=== PATIENT | male | born 1955 | race Caucasian/White ===

== ENCOUNTER 2017-03-21 04:29 | Inpatient (IN) | payer BC, OTHER ==
[~2017-03-21] VITALS: Ht 162.6 cm; Wt 57.1 kg
--- NOTE | ~2017-03-21 | EKG ---
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 : 1955 Requested By: Lorenzo Lim Order Number: [id number] MD: Rayo Burton Measurements Intervals [place] Rate: 105 P: 130 VA: 188 QRS: 53 QRSD: 101 T: 218 QT: 342 QTc: 453 Interpretive Statements Sinus tachycardia Probable anterior infarct, age indeterminate Nonspecific inferolateral ST and T wave abnormality No previous ECG available for comparison Electronically Signed On 03-21-2017 8:45:13 MOHS SURGEON by Rayo Burton [email or web address] <ELECTRONICALLY SIGNED> By: Rayo Burton MD, [facility] 03/21/17 0845 0433 2 Rayo Burton MD, FACC /EPI
--- NOTE | ~2017-03-21 | HC ---
[facility] [place] [address] CONSULTATION Name: MISTY HORNER Room #: 201-P ADM IN M.R.#: [id number] Admission: 03/21/17 Attend Phys: Prabhakar Duffy DO Discharge: Date of : 53 Report #: [id number] THIS REPORT FOR: //name// CC: Prabhakar Torres ATTENDING PHYSICIAN: Alexander Haywood MD REASON FOR CONSULTATION: Kidney transplant. HISTORY OF PRESENT ILLNESS: This 61-year-old gentleman with longstanding diabetes and multiple complications, has had a kidney transplant for the last 8 years. This has done reasonably well. In addition to that, he is status post code blue times 2 with severe cognitive impairment and has been in a nursing facility over the last couple of years because of that. He had a diabetic foot infection, this worsened, he had a transmetatarsal amputation in February and a BK amputation 6 days ago at [facility]. Yesterday, he went from to a assisted and then overnight became short of breath and was taken to this hospital for shortness of breath. PAST MEDICAL HISTORY: He has had the kidney transplant, the diabetes with multiple complications, the code blues with severe cognitive impairment, history of coronary artery disease, congestive heart failure, and decreased left ventricular ejection fraction. MEDICATIONS: At the facility include Myfortic 180 mg a.m. and 360 mg p.m.; multiple vitamins, Mag-Ox 400 b.i.d., lisinopril 2.5 mg daily, linaclotide 72 mcg a day, Xalatan eyedrops, lactulose for constipation daily, Zofran p.r.n., timolol eyedrops, Vemlidy 25 mg daily, Levemir and short-acting insulin, Coreg 3.125 mg daily, vitamin D3 2000 units daily, Plavix 75 mg daily, Colace 100 mg daily, Lexapro 10 mg daily, Flonase, Lasix 20 mg daily, gabapentin 300 mg daily, aspirin 81 mg daily, Prograf 1 mg a.m., Prograf 0.5 mg p.m., and Lipitor 40 mg daily. PAST SURGICAL HISTORY: Also includes glaucoma, blindness; left kidney cryoplasty procedure for some reason, dialysis fistula on the left. FAMILY HISTORY: Positive for heart disease, cancer, diabetes, hypertension, and vascular disease. SOCIAL HISTORY: He has never been a smoker, staying in extended care facility. REVIEW OF SYSTEMS: Cannot be taken due to his current mental status. PHYSICAL EXAMINATION: GENERAL: The patient is arousable, but much in the way of conversation or [address] [place] [address] CONSULTATION Name: SIRILEVYMISTY Carmelita Room #: 201-P [facility] IN M.R.#: [id number] Admission: 03/21/17 Attend Phys: Prabhakar Duffy DO Discharge: Date of : 53 Report #: [id number] answers. SKIN: Unremarkable. SKELETAL: Left BKA. HEENT: Extraocular movements cannot be tested, he is keeping his eyes closed. NECK: Shows no JVD. CHEST: Shows coarse breath sounds. HEART: Regular. ABDOMEN: Soft and nontender. EXTREMITIES: Showed a left BKA wound with dressing. LABORATORY DATA: Hemoglobin 9.9, white count 9.7. Sodium 135, potassium 5.6, chloride 100, bicarbonate 24, creatinine 1.3, BUN 16, glucose 244. ASSESSMENT: 1. Kidney transplant. drug oral immunosuppression, we will reorder. 2. Respiratory distress, aspiration versus heart failure. IV Lasix ordered. May need antibiotics. 3. Severe chronic cognitive impairment due to post-code blue status. 4. Status post left below-knee amputation. 5. Diabetes mellitus with triopathy and blindness. 6. History of hypertension. 7. History of coronary artery disease with heart failure. By: [id number] Martinez Dueñas MD /nt
--- NOTE | ~2017-03-21 | HC ---
[facility] [place] [address] CONSULTATION Name: MISTY HORNER Room #: 201-P ADM IN M.R.#: [id number] Admission: 03/21/17 Attend Phys: Prabhakar Duffy DO Discharge: Date of : 53 Report #: [id number] THIS REPORT FOR: //name// CC: Prabhakar Duffy DO Félix Torres DATE OF SERVICE: 03/21/2017 REQUESTING PHYSICIAN: Prabhakar Duffy DO CHIEF COMPLAINT: Acute hypoxic respiratory failure. HISTORY OF PRESENT ILLNESS: The patient is a 61-year-old male who has had extensive medical history in the past. Unfortunately, the patient just recently had been admitted to [facility] for a left BKA secondary to diabetic wounds and subsequently even prior to the BKA, I believe, he had been found to have extensive CAD, unable to place stents sufficient to revascularize, CABG could not be performed as they felt the patient was too high risk. The patient was secondarily discharged to a [facility] facility for care home, spent approximately 1 day there before becoming short of breath and having chest pain, at which time he was brought in to [facility] and discovered to have what appeared to be acute on chronic congestive heart failure and hypoxic respiratory failure. The patient was also found to have a lactic acid of 5.3. The patient has been altered on his mental status since his discharge. However, he has been less responsive than previous. His was present for my interview today and was answering the majority of my questions. He has had a known history previously of intubation, secondary tracheostomy and PEG tube placement; however, this has been several years prior. The patient himself appears to have a realization that he is in the hospital setting, but he cannot remember which hospital. He waffles back and forth in regards to wishes that he previously had. He also has other family members there including several siblings who are in the nursing field. PAST MEDICAL HISTORY: Significant for CKD with history of end-stage renal disease, has a dialysis catheter, congestive heart failure, likely combined, appears to have had a 30% ejection fraction at ; diabetes type 2, CAD, PVD, TIA, history of code unknown, no arrhythmia at that time, and history of tracheostomy as well as PEG tube placement, known kidney transplant, he had had cryoplasty done of his other kidney, and left leg BKA on 03/15/2017. MEDICATIONS: Lasix, Levemir, NovoLog, Plavix, Coreg, Protonix, lisinopril, Prograf, and Myfortic. FAMILY HISTORY: Coronary artery disease, cancer, diabetes, hypertension, and peripheral vascular disease. [address] [address] CONSULTATION Name: MISTY HORNER Room #: 201-P [facility] IN M.R.#: [id number] Admission: 03/21/17 Attend Phys: Prabhakar Duffy DO Discharge: Date of : 53 Report #: [id number] SOCIAL HISTORY: is his designated power of business attorney, not currently a smoker, alcohol or other drug use, previously was at [facility] for care home. His sisters are in the nursing field. ALLERGIES: No known drug allergies. CODE STATUS: Currently full. REVIEW OF SYSTEMS: Difficult to obtain from the patient. He initially states that he is having pain, then denies and he cannot pinpoint where it was initially. Denies shortness of breath. He denies chest pain currently, but will not open his eyes to me; appears to be responsive, although appears confused. PHYSICAL EXAMINATION: VITAL SIGNS: Include temperature 36.4, pulse 94, respirations 18, blood pressure 144/86, and 100% on nasal cannula. GENERAL: The patient is potentially oriented to self. He is in no acute distress currently. CARDIOVASCULAR: Regular rate and rhythm currently without murmur. No significant edema noted. RESPIRATORY: Lungs appear to be clear to auscultation bilateral upper schaffer. No respiratory distress. He is using nasal cannula. ABDOMEN: Soft, nontender to palpation x 4, positive bowel sounds noted in all 4 quadrants, but diminished. LABORATORY DATA: Include potassium initially 5.6. Lactic acid was initially 5.3, now 1.2. Hemoglobin 9.9, platelets 407. Sodium 135, creatinine 1.3. NT-proBNP 28,406. ASSESSMENT AND PLAN: 1. Acute hypoxic respiratory failure. This is likely secondary to congestive heart failure. I had discussed with the patient's family, the spouse is DPOA, she desires him to be full code. I did try to separate out whether he would want to receive CPR versus ventilation. Again, the patient's spouse reports that he wanted to be full code and we did try to discuss with the patient, but he then went back and forth on what he desired to have and did not really express the capacity to understand the decision making. I did discuss where they wanted to proceed if he were to improve enough to leave the hospital setting, they would want to go back to care home per report. I did discuss quality of life measures with regards to of all this, unfortunately the patient's family is split on this decision, but the durable power of business attorney continues with full code. I spent approximately 35 minutes on advanced care directive discussion with family. 2. Acute on chronic congestive heart failure, combined, again contributing to [facility] [place] [address] CONSULTATION Name: MISTY HORNER Room #: 201-P ADM IN M.R.#: [id number] Admission: 03/21/17 Attend Phys: Prabhakar Duffy DO Discharge: Date of : 53 Report #: [id number] above. The patient has extensive coronary artery disease unlikely to benefit extensively from CABG, likely to cause the end of his life as assessed by [facility]. I had discussed this with family today. 3. Coronary artery disease as above. 4. Left below-knee amputation. Again, this contributes to his overall condition and his propensity for recovery. I discussed this with spouse, although she wants to continue to pursue most aggressive measures possible. 5. Diabetes, management per primary team. 6. I will sign off at this time. Please contact me for any further questions regarding this patient. <ELECTRONICALLY SIGNED> By: Maxi Quarles DO 03/24/17 1422 0838 1021 Maxi Quarles DO /nt
[~2017-03-21 04:29] MED LIST: ASPIR 8181 MG PO; CENTRUM SILVER1 EAC2 PO; COLACE100 MG PO; COMPAZINE25 MG RECTAL; COREG3.125 MG PO; FLONASE 0.05%50 MCG NASAL; LASIX 20 MG TAB20 MG PO; LEVEMIR SUBQ; LEXAPRO 10 MG T10 MG PO; LIPITOR40 MG PO; LISINOPRIL2.5 M1 PO; MAGOX 400400 MG PO; NOVOLOG100 UNIT/1 SUBQ; ONDANSETRON HCL4 M2 PO; PLAVIX 75 MG TA75 M1 PO; PROTONIX40 M1 PO; VIREAD300 MG PO; ZOFRAN ODT4 MG PO
[2017-03-21 04:54] LABS: HEMATOCRIT 30.7 % (42.0-52.0); HEMOGLOBIN 9.9 gm/dL (14.0-18.0); MCH 29.1 pg (26.0-34.0); MCHC 32.1 g/dL (28.0-37.0); MCV 90.5 fL (80.0-100.0); PLATELET COUNT 407 thou/uL (150-400); RBC 3.39 mil/uL (4.50-6.00); RDW 14.9 % (10.5-14.5); WBC 9.7 thou/uL (4.0-11.0)
[2017-03-21 05:01] LABS: CALCIUM 9.2 mg/dL (8.5-10.1); CREATININE 1.3 mg/dL (0.7-1.3); POTASSIUM 5.6 mmol/L (3.5-5.1)
[2017-03-21] MEDS ORDERED: VITAMIN D2000 UNIT PO (05:02)
[2017-03-21] MEDS ORDERED: LEXAPRO 10 MG T10 M2 PO (05:03)
[2017-03-21] MEDS ORDERED: NEURONTIN 300300 M1 PO (05:05)
[2017-03-21] MEDS ORDERED: PROGRAF0.5 MG PO (05:07)
[2017-03-21] MEDS ORDERED: PROGRAF1 MG PO (05:07)
[2017-03-21] MEDS ORDERED: VEMLIDY25 MG PO (05:09)
[2017-03-21 05:10] LABS: TROPONIN-I 0.07 ng/mL (<0.06)
[2017-03-21] MEDS ORDERED: TIMOLOL GL0.5 %/5 M1 (05:13)
[2017-03-21] MEDS ORDERED: ZOFRAN ODT4 MG PO (05:14)
[2017-03-21] MEDS ORDERED: BISACODYL SUPP10 MG (05:14)
[2017-03-21] MEDS ORDERED: PETROLATUM (05:15)
[2017-03-21 05:18] LABS: MANUAL DIFF YES
[2017-03-21] MEDS ORDERED: TRAMADOL 50 MG50 MG PO (05:19)
[2017-03-21] MEDS ORDERED: XALATAN2.5 ML OPHTHALMIC (05:21)
[2017-03-21] MEDS ORDERED: LINZESS72 MCG PO (05:21)
[2017-03-21] MEDS ORDERED: CONSTULOSE10 GM/152 PO (05:21)
[2017-03-21] MEDS ORDERED: MYFORTIC180 MG PO (05:24)
[2017-03-21 05:26] LABS: ABSOLUTE NEUTROPHILS 7.6 thou/uL (1.4-8.2); MYELOCYTES 1 %; TOTAL CELL COUNT 100
[2017-03-21 06:35] VITALS: BP 109/67
[2017-03-21 09:03] VITALS: BP 164/95
[2017-03-21 11:02] VITALS: BP 144/86
[2017-03-21 15:03] VITALS: BP 130/74
[2017-03-21 19:23] VITALS: BP 136/78
[2017-03-22 03:26] LABS: CALCIUM 8.7 mg/dL (8.5-10.1); CREATININE 1.3 mg/dL (0.7-1.3); PHOSPHORUS 3.1 mg/dL (2.5-4.9); POTASSIUM 4.5 mmol/L (3.5-5.1)
[2017-03-22 05:15] VITALS: BP 144/83
[2017-03-22 07:35] VITALS: BP 134/73
[2017-03-22 11:00] VITALS: BP 151/91
[2017-03-22 15:04] VITALS: BP 123/66
[2017-03-22 19:22] VITALS: BP 114/65
[2017-03-23 00:05] VITALS: BP 119/71
[2017-03-23 03:41] LABS: BASOPHILS 0.2 % (0.0-2.0); EOSINOPHILS 0.1 % (0.0-3.0); HEMATOCRIT 25.4 % (42.0-52.0); HEMOGLOBIN 8.5 gm/dL (14.0-18.0); LYMPHOCYTES 15.2 % (24.0-44.0); MCH 29.9 pg (26.0-34.0); MCHC 33.4 g/dL (28.0-37.0); MCV 89.4 fL (80.0-100.0); MONOCYTES 10.9 % (1.0-8.0); POLYS 73.6 % (36.0-66.0); RBC 2.84 mil/uL (4.50-6.00); RDW 14.8 % (10.5-14.5); WBC 10.8 thou/uL (4.0-11.0)
[2017-03-23 03:44] LABS: PLATELET COUNT 303 thou/uL (150-400)
[2017-03-23 03:45] LABS: MANUAL DIFF NO
[2017-03-23 03:49] VITALS: BP 140/74
[2017-03-23 03:54] LABS: ALBUMIN 1.8 g/dL (3.4-5.0); CALCIUM 8.6 mg/dL (8.5-10.1); CREATININE 1.3 mg/dL (0.7-1.3); PHOSPHORUS 2.3 mg/dL (2.5-4.9); POTASSIUM 3.9 mmol/L (3.5-5.1)
[2017-03-23 07:05] VITALS: BP 126/68
[2017-03-23 11:25] VITALS: BP 133/72
[2017-03-23 15:15] VITALS: BP 124/82
[2017-03-23 19:33] VITALS: BP 136/69
[2017-03-24 02:56] VITALS: BP 143/75
[2017-03-24 04:09] LABS: ALBUMIN 2.3 g/dL (3.4-5.0); CALCIUM 9.6 mg/dL (8.5-10.1); CREATININE 1.3 mg/dL (0.7-1.3); PHOSPHORUS 2.2 mg/dL (2.5-4.9); POTASSIUM 3.9 mmol/L (3.5-5.1)
[2017-03-24 07:08] VITALS: BP 149/75
[2017-03-24] MEDS ORDERED: DUONEB 2.5-0.5 M3 ML INH (08:01)
[2017-03-24] MEDS ORDERED: ALBUTEROL2.5 MG/0.5 INH (08:01)
[2017-03-24 11:03] VITALS: BP 116/62
[2017-03-24] MEDS ORDERED: DEMADEX20 MG PO (11:35)
== END 2017-03-24 15:21 | disposition short-term general hospital (02) | DRG 291 ==
LOC: ER 04:29 → EROBS 05:55 → 2N 05:55
PROVIDERS: Emergency Medicine; Family Medicine; Internal Medicine Nephrology
DX: I13.2 Hypertensive heart and chronic kidney disease with heart failure and with stage 5 chronic kidney disease, or end stage renal disease (principal); N18.6 End stage renal disease; J96.01 Acute respiratory failure with hypoxia; I50.43 Acute on chronic combined systolic (congestive) and diastolic (congestive) heart failure; Z94.0 Kidney transplant status; N17.9 Acute kidney failure, unspecified; I25.10 Atherosclerotic heart disease of native coronary artery without angina pectoris; H54.7 Unspecified visual loss; E11.319 Type 2 diabetes mellitus with unspecified diabetic retinopathy without macular edema; E11.40 Type 2 diabetes mellitus with diabetic neuropathy, unspecified; G31.84 Mild cognitive impairment of uncertain or unknown etiology; E11.22 Type 2 diabetes mellitus with diabetic chronic kidney disease; E11.51 Type 2 diabetes mellitus with diabetic peripheral angiopathy without gangrene; E87.5 Hyperkalemia; D64.9 Anemia, unspecified; E11.65 Type 2 diabetes mellitus with hyperglycemia; Z66 Do not resuscitate; Z86.73 Personal history of transient ischemic attack (TIA), and cerebral infarction without residual deficits; Z93.0 Tracheostomy status; Z93.1 Gastrostomy status; Z99.2 Dependence on renal dialysis; Z89.512 Acquired absence of left leg below knee; Z79.82 Long term (current) use of aspirin; Z79.899 Other long term (current) drug therapy; Z83.3 Family history of diabetes mellitus; Z80.9 Family history of malignant neoplasm, unspecified; Z82.49 Family history of ischemic heart disease and other diseases of the circulatory system
CPT/HCPCS: 10081

== ENCOUNTER 2017-04-13 02:58 | Inpatient (IN) | payer BC, OTHER ==
[2017-04-13] VITALS (17 sets, daily range): BP systolic 81–136; BP diastolic 36–72
[~2017-04-13] VITALS: Ht 160 cm; Wt 66.3 kg
--- NOTE | ~2017-04-13 | HC ---
[facility] [place] [address] CONSULTATION Name: MISTY HORNER Room #: 243-P [facility] IN M.R.#: [id number] Admission: 04/13/17 Attend Phys: Alexander Haywood MD Discharge: 04/19/17 Date of : 53 Report #: [id number] THIS REPORT FOR: //name// CC: Alexander Torres REASON FOR CONSULTATION: Renal transplant. REASON FOR PRESENTATION: Post-cardiac arrest. HISTORY OF PRESENT ILLNESS: A 62-year-old with numerous problems including, not limited to repeated episodes of cardiac arrest and renal transplantation. I am not able to obtain any history from the patient; however, his is at bedside. The patient had a witnessed arrest in his facility. Intubated and resuscitated on . He was brought for further evaluation and management. He has numerous medical problems in the past including and not limited to hemodialysis, status post renal transplantation. He is also diabetic with a new left BKA. Code ice was initiated and the patient was admitted for further evaluation and management. I am being consulted to manage his renal transplant related issues. PAST MEDICAL HISTORY: 1. Status post out of hospital cardiac arrest. 2. ESRD in the past, status post new kidney transplantation. 3. Seizures. 4. Hypertension. 5. Diabetes mellitus. 6. Legally blind. 7. Peripheral vascular disease. 8. Status post left BKA. PAST SURGICAL HISTORY: 1. Renal transplantation. 2. Left BKA. 3. Left AV fistula. FAMILY HISTORY: Significant for diabetes mellitus, hypertension, and cancer. REVIEW OF SYSTEMS: Unobtainable. MEDICATIONS: The patient's outpatient medications include the followin. Plavix. 2. Carvedilol. 3. Torsemide. 4. Tacrolimus. 5. Mycophenolate. [facility] [address] [place] [address] CONSULTATION Name: SIRIMISTY Room #: 243-P DIS IN [facility]#: [id number] Admission: 04/13/17 Attend Phys: Alexander Haywood MD Discharge: 04/19/17 Date of : 53 Report #: [id number] PHYSICAL EXAMINATION: GENERAL: The patient is intubated. VITAL SIGNS: Blood pressure is 135/63. HEAD AND NECK: No jugular venous distention. ET tube is present. CHEST: No crackles. CARDIOVASCULAR: No rub. ABDOMEN: Soft, nontender. LOWER EXTREMITIES: Status post left BKA. LABORATORY VALUES: Reviewed. Creatinine is actually down to 1.3. White blood cell count 11.6. Chest x-ray reviewed, right mid lung infiltrate is present. Possible aspiration. ASSESSMENT, IMPRESSION AND PLAN: 1. Status post renal transplantation. 2. Status post out of hospital cardiac arrest. 3. Diabetes mellitus. 4. Hypertension. 5. Legal blindness. 6. Remote history of brain injury. 7. Code ice status. 8. From the renal perspective, the patient's kidney function is stable. I will wait for the rewarming process to start before making any further decision. I discussed with his his issues and recurrent cardiac arrest. He is not a candidate for any aggressive or heroic measures. If the family decides or opts to continue with the invasive measures, we will resume the patient's immune suppressive medications including tacrolimus and mycophenolate. 9. ID is following and adjusting his antibiotics accordingly. 10. Septic workup is ongoing. 11. Repeated episodes of cardiac arrest with no good outcome, should address code status with the family and this has been done by the primary team. I do believe that this patient would benefit from hospice, palliative care. <ELECTRONICALLY SIGNED> By: Perla Souza MD 04/19/17 0939 0940 Perla Souza MD /nt
--- NOTE | ~2017-04-13 | EKG ---
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
--- NOTE | ~2017-04-13 | HC ---
[facility] [place] [address] CONSULTATION Name: MISTY HORNER Room #: 243-P [facility] IN M.R.#: [id number] Admission: 04/13/17 Attend Phys: Alexander Haywood MD Discharge: 04/19/17 Date of : 53 Report #: [id number] THIS REPORT FOR: //name// CC: Roly Torres DATE OF SERVICE: 04/13/2017 HISTORY OF PRESENT ILLNESS: This is a 62-year-old male patient who was evaluated by me for altered mental status. This patient provides no history. The history is taken after talking to the nurses looking after this patient. No family member is available. This patient apparently had some insult to the brain in the past and has a compromised brain and he also had multiple other things like amputation. He apparently became apneic and had an asystole. CPR was done and the patient was intubated. When seen, the patient was intubated and was on cooling protocol. Nurses have noticed some activity initially, but after starting the patient on propofol, as I understand, they have not noticed any activity. It is not clear if the activity was shivering or something else. REVIEW OF SYSTEMS: Available only from the records. That indicates that this patient has pretty significant problems in the baseline and on top of that, he had hypoxia and appeared to have a prolonged resuscitation. I reviewed the records and that is where I got the history and it looks like the patient has severe cognitive impairment even before this all happened and has a pretty poor quality of the life. Records also indicate that he may have gone into atrial fibrillation even when he was here. It looks like this patient has a history of seizure, vomiting and congestive heart failure. He does have a prior history of transplant. I tried to get the 14-point review of system, but that is all I can get, which looks relevant. PAST MEDICAL HISTORY: Positive for what looks like pretty significant cognitive impairment in the baseline. FAMILY HISTORY: Unavailable. SOCIAL HISTORY: [facility] and apparently, he is also blind. PHYSICAL EXAMINATION: Pretty limited. He has no response of any kind to anything. He has no reflexes. I can tell about the eye examination because he apparently has blindness in the baseline. He is intubated. He is on cooling protocol. He is on a vent. He looks reasonably well developed. He has amputations in the past. His blood pressure is 111/54, his pulse is 64 and his respiratory rate is 17. LABORATORY DATA: His labs indicate a white count of 11.6 and hemoglobin of 9.8. He has not had any imaging study of the brain. [address] [address] CONSULTATION Name: SIRIMISTY Room #: 243-P [facility] IN M.R.#: [id number] Admission: 04/13/17 Attend Phys: Alexander Haywood MD Discharge: 04/19/17 Date of : 53 Report #: [id number] IMPRESSION: Hypoxic encephalopathy in a patient who has pretty significant compromise of the brain in the baseline. RECOMMENDATIONS: I think we will try to prognosticate this patient once he is off the cooling protocol. At that time, we will get an EEG done. If he is considered stable, then we will try to get a CT scan of the head done. I do not think we need any anticonvulsants at the moment because this patient is on propofol. However, we will readdress that question once the patient's EEG is obtained. Dr. Gonzalez will follow up this patient from tomorrow and look at these testings and leave further recommendations as indicated. Thank you very much for this referral. <ELECTRONICALLY SIGNED> By: rFench Sanders MD 04/21/172000 1818 2204 French Sanders MD /nt
--- NOTE | ~2017-04-13 | 2DMMODE ---
[facility] [address] [place] [address] 2 D/M-MODE ECHOCARDIOGRAM Name: SIRIMISTY Carmelita Room #: 170-6 ADM IN .R.#: [id number] Admission: 04/13/17 Attend Phys: Roly Palmer MD Discharge: Date of : 53 Date of Service: 04/13/17 0955 Report #: [id number] THIS REPORT FOR: //name// APPROVED REPORT Study performed: 04/13/2017 08:24:02 EXAM: Comprehensive 2D, Doppler, and color-flow Echocardiogram Patient Location: ER Room #: 6 Status: routine BSA: 1.64 HR: 62 bpm BP: 115/61 mmHg Other Information Study Quality: Adequate Indications Cardiac arrest 2D Dimensions RVDd: 28.70 mm LVEF(%): 41.20 (>50%) IVSd: 9.44 (7-11mm) LVOT Diam: 20.77 (18-24mm) LVDd: 47.66 mm PWd: 9.05 (7-11mm) Ascending Ao: 26.88 (22-36mm) LVDs: 38.06 (25-40mm) Aortic Root: 28.30 mm IVC: 22.00 mm Miranda's LVEF: 41.20 % Volumes Left Atrial Volume (Systole) Single Plane 4CH: 63.69 mL Single Plane 2CH: 81.56 mL LA ESV Index: 53.00 mL/m2 Aortic Valve AoV Peak Shin.: 1.31 m/s AO Peak Gr.: 6.82 mmHg LVOT Max P.26 mmHg LVOT Max V: 0.75 m/s MILAGROS Vmax: 1.95 cm2 Mitral Valve E/A Ratio: 1.3 MV Decel. Time: 186.77 ms MV E Max Shin.: 1.37 m/s [facility] [place] [address] 2 D/M-MODE ECHOCARDIOGRAM Name: HONRERMISTY Room #: 170-6 [facility] IN ..#: [id number] Admission: 04/13/17 Attend Phys: Roly Palmer MD Discharge: Date of : 53 Date of Service: 04/13/17 0955 Report #: [id number] A Shin.: 1.08 m/s MV PHT: 54.16 ms IVRT: 119.95 ms Pulmonary Valve PV Peak Shin.: 0.90 m/s PV Peak Gr.: 3.21 mmHg Tricuspid Valve TR Peak Shin.: 3.52 m/s TR Peak Gr.: 49.59 mmHg PA Pressure: 60.00 mmHg Left Ventricle The left ventricle is normal size. There is normal left ventricular wall thickness. Left ventricular ejection fraction is moderately decreased. LVEF is 35-40%. Hypokinesis of distal anterior wall, distal septum and apex The diastolic function is abnormal. Right Ventricle The right ventricle is normal size. The right ventricular systolic function is normal. Atria Left atrium is dilated. The right atrium size is normal. Aortic Valve Aortic valve is mildly calcified. Mild aortic regurgitation. There is no aortic valvular stenosis. Mitral Valve The mitral valve is normal in structure. Moderate mitral regurgitation. No evidence of mitral valve stenosis. Tricuspid Valve The tricuspid valve is normal in structure. There is mild tricuspid regurgitation. Estimated PAP 60 mmHg. There is moderate pulmonary hypertension. Pulmonic Valve The pulmonary valve is normal in structure. There is no pulmonic valvular regurgitation. Great Vessels The aortic root is normal in size. IVC is dilated and collapses >50% with inspiration. [facility] [address] [place] [address] 2 D/M-MODE ECHOCARDIOGRAM Name: MISTY HORNER Carmelita Room #: 170-6 ADM IN .R.#: [id number] Admission: 04/13/17 Attend Phys: Roly Palmer MD Discharge: Date of : 53 Date of Service: 04/13/17 0955 Report #: [id number] Pericardium Small circumferential pericardial effusion. <Conclusion> Left ventricular ejection fraction is moderately decreased. LVEF is 35-40%. Hypokinesis of distal anterior wall, distal septum and apex Aortic valve is mildly calcified. Mild aortic regurgitation, no stenosis. The mitral valve is normal in structure. Moderate mitral regurgitation. Pulmonary artery pressure of 60mmHg Small circumferential pericardial effusion. <ELECTRONICALLY SIGNED> By: Rayo Burton MD, [facility] 04/13/17954 4 4 Rayo Burton MD, FAC /INF
--- NOTE | ~2017-04-13 | HC ---
[facility] [place] [address] CONSULTATION Name: MISTY HORNER Room #: 243-P ADM IN M.R.#: [id number] Admission: 04/13/17 Attend Phys: Alexander Haywood MD Discharge: Date of : 53 Report #: [id number] THIS REPORT FOR: //name// CC: Roly Torres TYPE OF REPORT: Infectious diseases consultation. REASON FOR CONSULTATION: I was asked to evaluate concerning respiratory failure, pneumonia and aspiration. 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 No specific organism was identified at that time and he was discharged on 01/22/2017. No antibiotics were given at the time of discharge. He has remained on mycophenolate and tacrolimus for his immunosuppression. He was also discharged on tenofovir. He resides in a [facility]. Has been able to mobilize reasonably. He does have significant cognitive impairment from his anoxic encephalopathy and is blind. Today, noticed increased cough associated with nausea and vomiting. It appeared that he aspirated. Required a respiratory resuscitation. He then coded, was given epinephrine, bicarbonate and calcium and then went into atrial fibrillation with rapid ventricular response. Blood pressure was then maintained and he was transferred to Emergency Room for further care. He was placed on cold ice protocol and remains on ventilator at 40%. Moderate amount of tracheal secretions are aspirated. NG tube in place. Had one stool since being admitted, has indwelling Mtz catheter. Received IV fluids and is now on vasopressors. He also developed a seizure and is on Keppra. PAST MEDICAL HISTORY: Significant for diabetes, congestive heart failure, end-stage renal disease and now renal transplant past 9 years on 2 drug immunosuppression, peripheral vascular disease status post left BKA 1 month ago, congestive heart failure, hypertension, glaucoma, TIA, previous cardiorespiratory codes and anoxic encephalopathy. ALLERGIES: None. MEDICATIONS: As noted on his MAR, which were reviewed. He was given vancomycin, Levaquin and Zosyn in the Emergency Room. FAMILY HISTORY: Heart disease, cancer, diabetes, hypertension and vascular disease. SOCIAL HISTORY: Nonsmoker. No significant alcohol intake. REVIEW OF SYSTEMS: The patient was unable to give details of review of systems. [address] [address] CONSULTATION Name: MISTY HORNER [place] Room #: 243-P [facility] IN M.R.#: [id number] Admission: 04/13/17 Attend Phys: Alexander Haywood MD Discharge: Date of : 53 Report #: [id number] He does have an indwelling Mtz catheter, right femoral IV line and is orally intubated. PHYSICAL EXAMINATION: VITAL SIGNS: Temperature is 95.8, pulse 79, respirations 30 and blood pressure 127/64 on low dose of Levophed. GENERAL: The patient was obtunded, did not respond to verbal stimuli. HEENT: Pupils reactive. Orally intubated. NECK: Supple. LUNGS: Coarse bilaterally. HEART: Regular, without murmur. ABDOMEN: Soft and nontender. No hepatosplenomegaly or mass. GENITALIA: External genitalia unremarkable. EXTREMITIES: Unremarkable with left BKA incision well intact with laurita in place. Right femoral IV unremarkable. LABORATORY STUDIES: Sodium 137, potassium 4.3, bicarbonate of 24 and creatinine 1.4. Alkaline phosphatase normal, bilirubin normal and ALT normal. Blood glucose 314. Lipase normal. Lactate 5. Troponin 0.2. BNP 11,689. Hemoglobin 9.1; platelet count 229,000; WBC 8.9; 89% segs and 4% lymphs. Urinalysis unremarkable. Blood, urine and sputum cultures are pending. RADIOLOGICAL DATA: Chest x-ray: Cardiomegaly; right mid lung infiltrate; left lower lobe infiltrate and left rib fracture, old. IMPRESSION: A 62-year old with renal transplant, two-drug immunosuppression, healthcare-associated aspiration pneumonia with respiratory failure, shock in the setting of diabetes, peripheral vascular disease and anoxic encephalopathy. RECOMMENDATIONS: Recommend further evaluation for influenza as possible etiology for his initial event, screen for nosocomial organisms and continue broad-antibiotic coverage. We will give full support and anticipate transfer to the intensive care unit. <ELECTRONICALLY SIGNED> By: Sanchez Loving MD 04/14/17 0906 [id number] Sanchez Loving MD /nt
--- NOTE | ~2017-04-13 | HC ---
[facility] [place] [address] CONSULTATION Name: MISTY HORNER Room #: 243-P [facility] IN M.R.#: [id number] Admission: 04/13/17 Attend Phys: Alexander Haywood MD Discharge: 04/19/17 Date of : 53 Report #: [id number] THIS REPORT FOR: //name// CC: Alexander Torres REQUESTING PHYSICIAN: Dr. Haywood. CHIEF COMPLAINT: Hypoxic respiratory failure and cardiac arrest. HISTORY OF PRESENT ILLNESS: The patient is a 62-year-old male who I had seen previously on 03/21/2017 for consultation. He had presented on 04/13/2017 after an episode at [facility] in which patient had a witnessed cardiac arrest. He apparently had some coughing and then an episode of aspiration followed by arrest, 10 minutes of CPR and then was transported by EMS at which time in the Emergency Department had additional 10-15 minutes, was found to be asystole initially, had recovery of spontaneous circulation and then was in AFib with RVR. During the process, the patient was intubated and has been subsequently sustained on mechanical ventilator. Unfortunately, the patient has had little recovery in his overall mental status since this episode. He has a significant past medical history significant for congestive heart failure appears to be combined with an ejection fraction 30% last at [facility]. EF was found to be 35% here at the facility. He also has type 2 diabetes and history of diabetic ulcers, which he has some now. Additionally, he has had a left BKA on 03/15/2017 and had a cryoplasty done of one of his kidneys. Additionally, he has had a kidney transplant and has been off dialysis since having this transplant. He has a left AV fistula. Additionally, he has peripheral vascular disease, suspected dementia, CAD, TIA, history of tracheostomy as well PEG tube placement. MEDICATIONS: Prior to arrival Lasix, Levemir, NovoLog, Plavix, Coreg, Protonix, lisinopril, Prograf and Myfortic. FAMILY HISTORY: Coronary artery disease, cancer, diabetes, hypertension and peripheral vascular disease. SOCIAL HISTORY: His is designated power of attorney general who was present during my interview today. Also has two siblings who were present at the time of my interview. ALLERGIES: No known drug allergies. CODE STATUS: Currently, he is listed as a medical code only. REVIEW OF SYSTEMS: Unable to obtain at this time due to [place] [address] CONSULTATION Name: MISTY HORNER Room #: 243-P [facility]#: [id number] Admission: 04/13/17 Attend Phys: Alexander Haywood MD Discharge: 04/19/17 Date of : 53 Report #: [id number] PHYSICAL EXAMINATION: VITAL SIGNS: Include a temperature of 37.1, pulse 92, respirations 13, blood pressure 127/66, and 100% on a ventilator. GENERAL: Not alert, unable to arouse through any stimuli. CARDIOVASCULAR: Regular rate and rhythm, currently in no acute distress. RESPIRATORY: Diffuse ventilatory sounds with mechanical ventilation. ABDOMEN: Soft and nontender to palpation. LABORATORY DATA: These include white blood cell 17.3, hemoglobin 9.3, hematocrit 29.2, and platelets 172. Creatinine is 1.5. AST 73 and ALT 17. ASSESSMENT AND PLAN: 1. Acute hypoxic respiratory failure. The patient is currently ventilated. I had an extensive discussion with family lasting approximately 35 minutes. Family desires to have palliative extubation. In addition, I discussed what this would entail including the process of switching him to CPAP initially, titrating medications for comfort and then finally extubation. I did also make them aware of secretions that would likely be present and that we would manage any discomfort or anxiety that he experienced. They are amenable to this at this time. We will make no code concerning his code status at this time. 2. Status post cardiac arrest. Again, at this time pursuing therapeutic extubation. 3. Combined congestive heart failure. I did discuss this in context of his overall quality of life, extubation as above. 4. Likely anoxic brain injury again overall affecting prognosis, considering this and his previous diagnoses quality of life indicators are much reduced, but we will pursue therapeutic extubation. I will place orders and I have discussed with family. I will try to be present for this if at all possible at the beginning of this extubation. They have contacted their own professor of biostatistics and are contacting family members at this time. Thank you very much for the consultation. <ELECTRONICALLY SIGNED> By: Maxi Quarles DO 04/26/17 [id number] Maxi Quarles DO /nt
[~2017-04-13 02:58] MED LIST changes: +ALBUTEROL2.5 MG/0.5 INH; +BISACODYL SUPP10 MG; +CONSTULOSE10 GM/152 PO; +DEMADEX20 MG PO; +DUONEB 2.5-0.5 M3 ML INH; +LEXAPRO 10 MG T10 M2 PO; +LINZESS72 MCG PO; +MYFORTIC180 MG PO; +NEURONTIN 300300 M1 PO; +PETROLATUM; +PROGRAF0.5 MG PO; +PROGRAF1 MG PO; +TIMOLOL GL0.5 %/5 M1; +TRAMADOL 50 MG50 MG PO; +VEMLIDY25 MG PO; +VITAMIN D2000 UNIT PO; +XALATAN2.5 ML OPHTHALMIC
[2017-04-13 03:50] LABS: BE(vivo) -9.1 mmol/L (-2 to +3); HCO3 17.2 mmol/L (22.0-26.0); PCO2 38.6 mmHg (35.0-45.0); PO2 255.5 mmHg (80.0-100.0); sO2 99.5 % (92.0-98.0)
[2017-04-13 03:51] LABS: pH 7.267 (7.360-7.450)
[2017-04-13 06:20] LABS: CALCIUM 8.7 mg/dL (8.5-10.1); CREATININE 1.4 mg/dL (0.7-1.3); POTASSIUM 4.3 mmol/L (3.5-5.1)
[2017-04-13 06:22] LABS: APTT 28.7 Seconds (24.5-32.8); BASOPHILS 0.4 % (0.0-2.0); HEMATOCRIT 27.5 % (42.0-52.0); HEMOGLOBIN 9.1 gm/dL (14.0-18.0); INR 1.2; LYMPHOCYTES 4.5 % (24.0-44.0); MCH 30.3 pg (26.0-34.0); MCHC 32.9 g/dL (28.0-37.0); MCV 91.9 fL (80.0-100.0); MONOCYTES 5.2 % (1.0-8.0); PLATELET COUNT 229 thou/uL (150-400); POLYS 89.9 % (36.0-66.0); PROTIME 12.5 Seconds (9.3-11.4); RDW 18.3 % (10.5-14.5); WBC 8.9 thou/uL (4.0-11.0)
[2017-04-13 06:27] LABS: FIBRINOGEN 184.3 mg/dL (210-360)
[2017-04-13 06:29] LABS: MAGNESIUM 1.8 mg/dL (1.8-2.4); TOTAL BILIRUBIN 0.4 mg/dL (<0.1-1.0); TOTAL PROTEIN 5.4 g/dL (6.4-8.2); TROPONIN-I 0.22 ng/mL (<0.06)
[2017-04-13 06:34] LABS: D-DIMER 35.2 ug/mLFEU (0.19-0.50)
[2017-04-13 07:05] LABS: BE(vivo) -3.1 mmol/L (-2 to +3); HCO3 21.2 mmol/L (22.0-26.0); PCO2 34.9 mmHg (35.0-45.0); pH 7.402 (7.360-7.450); sO2 97.5 % (92.0-98.0)
[2017-04-13 07:29] LABS: URINE BILIRUBIN NEGATIVE (Negative); URINE BLOOD NEGATIVE (Negative); URINE CLARITY CLEAR; URINE COLOR YELLOW; URINE GLUCOSE-RANDOM* NEGATIVE (Negative); URINE KETONES NEGATIVE (Negative); URINE LEUKOCYTES-REFLEX NEGATIVE (Negative); URINE NITRITE-REFLEX NEGATIVE (Negative); URINE PROTEIN (DIPSTICK) 2+ (Negative); URINE UROBILINOGEN 0.2 E.U./dl (0.2-1.0)
[2017-04-13 07:43] LABS: AMP/METHAMP Negative (Negative); BARBITURATES Negative (Negative); BENZODIAZEPINES Negative (Negative); COCAINE Negative (Negative); METHADONE Negative (Negative); OPIATES Negative (Negative); PCP Negative (Negative)
[2017-04-13 07:56] LABS: FINE GRANULAR CASTS 0-3 Few /LPF (None Seen); HYALINE CASTS 0-3 Few /LPF (None Seen)
[2017-04-13 08:01] LABS: BACTERIA-REFLEX 1-9 Few /HPF (None Seen); CRYSTALS None Seen /LPF (None Seen); SQUAMOUS None Seen /LPF (0-3); URINE RBC 0-2 Rare /HPF (0-2); URINE WBC-REFLEX 0-5 Rare /HPF (0-5)
[2017-04-13 12:31] LABS: CALCIUM 8.2 mg/dL (8.5-10.1); CREATININE 1.3 mg/dL (0.7-1.3); POTASSIUM 3.7 mmol/L (3.5-5.1)
[2017-04-13 12:33] LABS: TROPONIN-I 0.75 ng/mL (<0.06)
[2017-04-13 16:40] LABS: HEMATOCRIT 29.9 % (42.0-52.0); HEMOGLOBIN 9.8 gm/dL (14.0-18.0); MCHC 32.9 g/dL (28.0-37.0); MCV 91.1 fL (80.0-100.0); PLATELET COUNT 233 thou/uL (150-400); RBC 3.28 mil/uL (4.50-6.00); RDW 18.4 % (10.5-14.5); WBC 11.6 thou/uL (4.0-11.0)
[2017-04-13 16:47] LABS: CREATININE 1.1 mg/dL (0.7-1.3); POTASSIUM 3.6 mmol/L (3.5-5.1)
[2017-04-13 16:53] LABS: ALBUMIN 1.9 g/dL (3.4-5.0); MAGNESIUM 1.6 mg/dL (1.8-2.4); TOTAL BILIRUBIN 0.3 mg/dL (<0.1-1.0); TOTAL PROTEIN 5.5 g/dL (6.4-8.2)
[2017-04-13 16:56] LABS: APTT 31.2 Seconds (24.5-32.8); INR 1.2; PROTIME 12.3 Seconds (9.3-11.4)
[2017-04-13 17:56] LABS: ABSOLUTE NEUTROPHILS 10.3 thou/uL (1.4-8.2)
[2017-04-13 17:57] LABS: ANISOCYTOSIS 2+
[2017-04-13 17:58] LABS: POLYCHROMASIA SLIGHT
[2017-04-13 17:59] LABS: HYPOCHROMASIA 2+; TARGET CELLS OCCASIONAL
[2017-04-13 21:15] LABS: CALCIUM 8.3 mg/dL (8.5-10.1); CREATININE 1.2 mg/dL (0.7-1.3); POTASSIUM 3.8 mmol/L (3.5-5.1)
[2017-04-13 21:17] LABS: TROPONIN-I 0.82 ng/mL (<0.06)
[2017-04-14] VITALS (70 sets, daily range): BP systolic 70–120; BP diastolic 43–60
[2017-04-14 00:42] LABS: CALCIUM 7.8 mg/dL (8.5-10.1); CREATININE 1.1 mg/dL (0.7-1.3); POTASSIUM 3.7 mmol/L (3.5-5.1)
[2017-04-14 00:47] LABS: TROPONIN-I 0.75 ng/mL (<0.06)
[2017-04-14 08:35] LABS: CALCIUM 7.8 mg/dL (8.5-10.1); CREATININE 1.3 mg/dL (0.7-1.3); POTASSIUM 3.5 mmol/L (3.5-5.1); TROPONIN-I 0.58 ng/mL (<0.06)
[2017-04-15] VITALS (61 sets, daily range): BP systolic 86–136; BP diastolic 49–75
[2017-04-15 04:01] LABS: HEMOGLOBIN 8.8 gm/dL (14.0-18.0); MCH 29.7 pg (26.0-34.0); MCHC 32.7 g/dL (28.0-37.0); MCV 90.6 fL (80.0-100.0); RBC 2.98 mil/uL (4.50-6.00); RDW 18.2 % (10.5-14.5)
[2017-04-15 04:13] LABS: CALCIUM 7.2 mg/dL (8.5-10.1); CREATININE 1.3 mg/dL (0.7-1.3); POTASSIUM 3.2 mmol/L (3.5-5.1)
[2017-04-16] VITALS (29 sets, daily range): BP systolic 119–144; BP diastolic 67–82
[2017-04-16 05:38] LABS: ALBUMIN 1.7 g/dL (3.4-5.0); CALCIUM 7.5 mg/dL (8.5-10.1); CREATININE 1.2 mg/dL (0.7-1.3); PHOSPHORUS 2.3 mg/dL (2.5-4.9)
[2017-04-16 22:10] LABS: BE(vivo) -6.5 mmol/L (-2 to +3); HCO3 17.2 mmol/L (22.0-26.0); PCO2 28.3 mmHg (35.0-45.0); PO2 97.7 mmHg (80.0-100.0); pH 7.402 (7.360-7.450); sO2 97.6 % (92.0-98.0)
[2017-04-17] VITALS (24 sets, daily range): BP systolic 109–134; BP diastolic 54–92
[2017-04-17 06:56] LABS: HEMATOCRIT 29.2 % (42.0-52.0); HEMOGLOBIN 9.3 gm/dL (14.0-18.0); MCH 29.2 pg (26.0-34.0); MCHC 31.9 g/dL (28.0-37.0); MCV 91.5 fL (80.0-100.0); PLATELET COUNT 172 thou/uL (150-400); RBC 3.19 mil/uL (4.50-6.00); RDW 18.3 % (10.5-14.5); WBC 17.3 thou/uL (4.0-11.0)
[2017-04-17 07:02] LABS: ALBUMIN 1.7 g/dL (3.4-5.0); CALCIUM 7.9 mg/dL (8.5-10.1); CREATININE 1.5 mg/dL (0.7-1.3); PHOSPHORUS 2.7 mg/dL (2.5-4.9); POTASSIUM 4.1 mmol/L (3.5-5.1); TOTAL BILIRUBIN 0.4 mg/dL (<0.1-1.0); TOTAL PROTEIN 5.2 g/dL (6.4-8.2)
[2017-04-17 10:15] LABS: ABSOLUTE NEUTROPHILS 15.4 thou/uL (1.4-8.2); NUCLEATED RBCS 2 /100WBC
[2017-04-17 10:17] LABS: ANISOCYTOSIS SLIGHT; POIKILOCYTOSIS SLIGHT; POLYCHROMASIA SLIGHT
[2017-04-17 10:18] LABS: BURR CELLS OCCASIONAL; HYPOCHROMASIA SLIGHT; OVALOCYTES OCCASIONAL; SCHISTOCYTES OCCASIONAL
[2017-04-18] VITALS (17 sets, daily range): BP systolic 122–133; BP diastolic 64–74
[2017-04-18 04:35] LABS: ALBUMIN 1.6 g/dL (3.4-5.0); CALCIUM 8.4 mg/dL (8.5-10.1); CREATININE 1.6 mg/dL (0.7-1.3); PHOSPHORUS 3.3 mg/dL (2.5-4.9); POTASSIUM 4.3 mmol/L (3.5-5.1)
[2017-04-18 14:09] LABS: ADENOVIRUS Negative (Negative); INFLUENZA A Negative (Negative); INFLUENZA B Negative (Negative); METAPNEUMOVIRUS Negative (Negative); PARAINFLUENZA 1 Negative (Negative); PARAINFLUENZA 2 Negative (Negative); PARAINFLUENZA 3 Negative (Negative); RHINOVIRUS Negative (Negative); RSV A Positive (Negative); RSV B Negative (Negative)
== END 2017-04-19 02:37 | DRG 870 ==
LOC: ER 02:58 → EROBS 05:17 → ICU 05:17
PROVIDERS: Emergency Medicine; Hospitalist; Internal Medicine Pulmonary Disease; Nurse Practitioner Acute Care; Specialist
PROC: 06HY33Z Insertion of Infusion Device into Lower Vein, Percutaneous Approach (ICD-10-PCS; principal; 2017-04-13)
PROC: 5A1955Z Respiratory Ventilation, Greater than 96 Consecutive Hours (ICD-10-PCS; 2017-04-13)
PROC: 5A12012 Performance of Cardiac Output, Single, Manual (ICD-10-PCS; 2017-04-13)
PROC: 0BH17EZ Insertion of Endotracheal Airway into Trachea, Via Natural or Artificial Opening (ICD-10-PCS; 2017-04-13)
DX: A41.9 Sepsis, unspecified organism (principal); N18.6 End stage renal disease; J69.0 Pneumonitis due to inhalation of food and vomit; J96.01 Acute respiratory failure with hypoxia; I50.43 Acute on chronic combined systolic (congestive) and diastolic (congestive) heart failure; J15.212 Pneumonia due to Methicillin resistant Staphylococcus aureus; I13.2 Hypertensive heart and chronic kidney disease with heart failure and with stage 5 chronic kidney disease, or end stage renal disease; G93.1 Anoxic brain damage, not elsewhere classified; E44.0 Moderate protein-calorie malnutrition; Z94.0 Kidney transplant status; I25.10 Atherosclerotic heart disease of native coronary artery without angina pectoris; I48.91 Unspecified atrial fibrillation; E11.51 Type 2 diabetes mellitus with diabetic peripheral angiopathy without gangrene; I46.9 Cardiac arrest, cause unspecified; H40.9 Unspecified glaucoma; G25.3 Myoclonus; E87.6 Hypokalemia; H54.8 Legal blindness, as defined in USA; Z79.82 Long term (current) use of aspirin; Z79.4 Long term (current) use of insulin; Z79.899 Other long term (current) drug therapy; Z99.2 Dependence on renal dialysis; Z89.512 Acquired absence of left leg below knee; Z68.25 Body mass index [BMI] 25.0-25.9, adult; Z22.322 Carrier or suspected carrier of Methicillin resistant Staphylococcus aureus; Z86.73 Personal history of transient ischemic attack (TIA), and cerebral infarction without residual deficits; Z80.9 Family history of malignant neoplasm, unspecified; Z83.3 Family history of diabetes mellitus; Z82.49 Family history of ischemic heart disease and other diseases of the circulatory system; Z84.89 Family history of other specified conditions
CPT/HCPCS: 10078